=== PATIENT | male | born 1975 | race Caucasian/White ===

== ENCOUNTER 2016-06-25 07:20 | Emergency (ER) | payer BC, OTHER ==
[2016-06-25] MEDS ORDERED: Oxymetazoline HCl 0.05% ( 15 ML ) ONE (07:31)
[2016-06-25] MEDS ORDERED: Bacitracin Zinc 1 Packet ONE (07:53)
[2016-06-25] MEDS ORDERED: predniSONE 20 MG TAB ONE (07:58)
== END 2016-06-25 07:55 | disposition home or self-care (01) ==
LOC: NAV ERS 07:20
DX: R04.0 Epistaxis (principal)
CPT/HCPCS: 99283; J7506